=== PATIENT | female | born 1995 | race Caucasian/White ===

== ENCOUNTER 2021-02-27 10:11 | Emergency (ER) | payer OTHER, SELFPAY ==
[2021-02-27 10:22] VITALS: BP 110/66; PULSE 96; RESP 20; TEMP 36.9; O2SAT 97
--- NOTE | 2021-02-27 11:22 | ED.ABDPAIN ---
HPI - Abdominal Pain General Chief Complaint: Abdominal Pain Stated Complaint: stomach pains Source: patient and RN notes reviewed Mode of arrival: ambulatory History of Present Illness HPI narrative: This is a 25-year-old female that presented to urgent care with complaints of epigastric and right upper quadrant pain that she describes as a stabbing sensation. According to patient 1 month ago she went to [facility] and was diagnosed with GERD. 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 She noted that she was upset with the hospital because she felt as if they did not doing. Patient notes that since then she has continued to experience. Patient will be transferred to [facility] in [place] for further diagnostics. According to Alanis RN there is no accepting physician at that facility, report given to Alansi DOWNEY. Related Data Home Medications Medication Instructions Recorded Confirmed No Home Medications 02/27/21 02/27/21 Allergies Allergy/AdvReac Type Severity Reaction Status Date / Time azithromycin Allergy Unknown Unknown Unverified 02/27/21 10:49 Pigweed Allergy Unknown Unknown Uncoded 02/27/21 10:49 Review of Systems Review of Systems: A 14 organ system Review of Systems was performed and pertinent positives included in the HPI, otherwise remaining ROS is negative. [facility] Family History Family History (Updated 02/27/21 @ 11:24 by RUSSEL Jefferson) Other Family history non-contributory Exam Narrative: GENERAL: This is a well-nourished, well-developed patient, in no apparent distress. HEAD: normocephalic, atraumatic. EYES: PERRL. Sclera clear/white. Vision is grossly intact. EARS: External ears normal, auditory canals clear and without drainage, TMs normal without perforation. Hearing grossly intact. NOSE: External nose normal with no obvious nasal discharge, nares without redness, no rhinorrhea. THROAT: Mucous membranes moist, posterior pharynx clear. NECK: Neck supple, non-tender without lymphadenopathy, masses or thyromegaly. CARDIOVASCULAR: Regular rate and rhythm without murmurs, gallops, or rubs. RESPIRATORY: Clear to auscultation. Breath sounds equal bilaterally. No wheezes, rales, or rhonchi. GASTROINTESTINAL: Abdomen soft, tenderness to the epigastric and right upper quadrant area nondistended. Bowel sounds are active. No hepato-splenomegaly, or palpable masses. SKIN: warm, intact with no suspicious lesions or rash, good texture and turgor. NEURO: awake, alert, and oriented to person, place and time. There were no obvious focal neurologic abnormalities. Steady gait EXTREMITIES: Normal range of motion. No edema. No calf tenderness. Negative Homans sign bilaterally. BACK: Nontender without deformity or crepitance. No flank tenderness. Course Course Emergency Course: Patient will be going to [facility] in for further diagnostic testing. According to Alanis DOWNEY there is no accepting physician report given to Alanis DOWNEY Vital Signs Vital signs: Vital Signs Temperature 98.4 F 02/27/21 10:22 Pulse Rate 96 02/27/21 10:22 Respiratory Rate 20 02/27/21 10:22 Blood Pressure 110/66 02/27/21 10:22 Pulse Oximetry 97 02/27/21 10:22 Temperature 98.4 F 02/27/21 10:22 Pulse Rate 96 02/27/21 10:22 Respiratory Rate 20 02/27/21 10:22 Blood Pressure 110/66 02/27/21 10:22 Pulse Oximetry 97 02/27/21 10:22 MDM - Abdominal Pain Differential Diagnosis Differential diagnosis: Likely abdominal pain, diverticulitis and gastroenteritis Discharge Plan Discharge Clinical Impression: Abdominal pain Qualifiers: Abdominal location: epigastric Qualified Code(s): R10.13 - Epigastric pain Patient Disposition: Acute Care Hospital Condition: Stable Prescriptions: No Action No Home Medications RF: 0 Follow-up/Referrals: PHYSICIAN,MECHANICAL ENGINEERING TEACHER [Primary Care Provider] - Time
== END 2021-02-27 11:30 | disposition short-term general hospital (02) ==
PROVIDERS: Emergency Provider Nurse Practitioner
DX: R10.13 Epigastric pain (principal)
CPT/HCPCS: 99212; G0463

== ENCOUNTER 2023-01-29 10:28 | Emergency (ER) | payer OTHER, BC, SELFPAY ==
--- NOTE | 2023-01-29 10:39 | ED.EAR ---
HPI - Ear Problem General Chief complaint: Ear Stated complaint: Ear Pain/Congestion Source: patient and RN notes reviewed History of Present Illness HPI Narrative: 27 yo F presents to urgent care with complaints of left ear pain starting this morning. Pt states she has had cold-like symptoms with congestion the last day or two. Pt denies any fevers, chills, chest pain, SOB, N/V/D. Related Data Allergies Allergy/AdvReac Type Severity Reaction Status Date / Time azithromycin Allergy Unknown Unknown Unverified 02/27/21 10:49 Pigweed Allergy Unknown Unknown Uncoded 02/27/21 10:49 Review of Systems Review of Systems: CONSTITUTIONAL: Denies fever, chills, or sweats. EYES: Denies visual changes, redness, or discharge. CARDIOVASCULAR: Denies chest pain, palpitations, or edema. RESPIRATORY: Denies cough or dyspnea. GASTROINTESTINAL: Denies abdominal pain, nausea, vomiting, or diarrhea. GENITOURINARY: Denies dysuria or hematuria. SKIN: Denies rash or itching. MUSCULOSKELETAL: Denies back pain, joint pain, or myalgia. NEUROLOGIC: Denies headache, numbness, or weakness. Pertinent positives per HPI. [facility] Family History Family History (Updated 02/27/21 @ 11:24 by RUSSEL Jefferson) Other Family history non-contributory Comments At the time of my signature, I reviewed and agree with the nursing past medical, surgical, social, and family history. There is no relevant family history pertinent to the patient complaint. Exam Narrative: GENERAL: This is a well-nourished, well-developed patient, in no apparent distress. HEAD: normocephalic, atraumatic. EYES: Sclera clear/white. Vision is grossly intact. EARS: External ears normal, auditory canals clear and without drainage, Right TM normal without perforation. Hearing grossly intact. left TM erythremic and bulging NOSE: External nose normal with no obvious nasal discharge, nares without redness, no rhinorrhea. + congestion THROAT: Mucous membranes moist, posterior pharynx clear. NECK: Neck supple, non-tender without lymphadenopathy, masses or thyromegaly. CARDIOVASCULAR: Regular rate and rhythm without murmurs, gallops, or rubs. RESPIRATORY: Clear to auscultation. Breath sounds equal bilaterally. No wheezes, rales, or rhonchi. SKIN: warm, intact with no suspicious lesions or rash, good texture and turgor. NEURO: awake, alert, and oriented to person, place and time. There were no obvious focal neurologic abnormalities. Course Course Level of Care: Express Care Visit Vital Signs Vital signs: Vital Signs Temperature 97.5 F L 01/29/23 10:42 Pulse Rate 84 01/29/23 10:42 Respiratory Rate 16 01/29/23 10:42 Blood Pressure 110/67 01/29/23 10:42 Pulse Oximetry 98 01/29/23 10:42 Oxygen Delivery Room Air 01/29/23 10:42 Temperature 97.5 F L 01/29/23 10:42 Pulse Rate 84 01/29/23 10:42 Respiratory Rate 16 01/29/23 10:42 Blood Pressure 110/67 01/29/23 10:42 Pulse Oximetry 98 01/29/23 10:42 Oxygen Delivery Room Air 01/29/23 10:42 Reviewed Medical Decision Making MDM Narrative Medical decision making narrative: Take antibiotics as directed. May given ibuprofen and/or Tylenol as needed for pain and/or fever. Follow up with primary care provider in 7-10 days to have ear rechecked. Differential Diagnosis Differential Diagnosis: URI, acute otitis media, otitis externa, cerumen impaction Vital Signs Vital Signs: Vital Signs Temperature 97.5 F L 01/29/23 10:42 Pulse Rate 84 01/29/23 10:42 Respiratory Rate 16 01/29/23 10:42 Blood Pressure 110/67 01/29/23 10:42 Pulse Oximetry 98 01/29/23 10:42 Oxygen Delivery Room Air 01/29/23 10:42 Temperature 97.5 F L 01/29/23 10:42 Pulse Rate 84 01/29/23 10:42 Respiratory Rate 16 01/29/23 10:42 Blood Pressure 110/67 01/29/23 10:42 Pulse Oximetry 98 01/29/23 10:42 Oxygen Delivery Room Air 01/29/23 10:42 Critical Care Time Critical Care Time
[2023-01-29 10:42] VITALS: BP 110/67; PULSE 84; RESP 16; TEMP 36.4; O2SAT 98
== END 2023-01-29 10:52 | disposition home or self-care (01) ==
PROVIDERS: Emergency Provider Nurse Practitioner Family
DX: H66.92 Otitis media, unspecified, left ear (principal)
CPT/HCPCS: 99213; G0463